=== PATIENT | female | born 1955 | race Hispanic/Latino ===

== ENCOUNTER 2020-06-15 09:42 | Emergency (ER) | payer SELFPAY ==
[~2020-06-15] VITALS: Ht 157.5 cm; Wt 68.9 kg
[2020-06-15] MEDS ORDERED: ZOFRAN4 MG SL (09:59)
== END 2020-06-15 10:00 | disposition home or self-care (01) ==
LOC: ER 09:52
DX: U07.1 COVID-19 (principal); R50.9 Fever, unspecified; R05 Cough; I10 Essential (primary) hypertension; E11.9 Type 2 diabetes mellitus without complications; E78.5 Hyperlipidemia, unspecified
CPT/HCPCS: 99283